=== PATIENT | male | born 1970 | race Caucasian/White ===

== ENCOUNTER 2018-01-29 18:14 | Emergency (ER) | payer OTHER ==
--- NOTE | 2018-01-29 18:20 | EDM.PDOC ---
ED HPI GENERAL MEDICAL PROBLEM - General Chief Complaint: Upper Extremity Injury/Pain Stated Complaint: FALL/PAIN LT PALM/RT ELBOW Time Seen by Provider: 01/29/18 18:19 Source of Information: Reports: Patient History Limitations: Reports: No Limitations - History of Present Illness INITIAL COMMENTS - FREE TEXT/NARRATIVE: HISTORY AND PHYSICAL: History of present illness: Patient is a 47-year-old male who presents to the emergency room today with complaints of right elbow pain and left wrist pain after falling. He states the sole of his shoe got caught on the curb and he fell with outstretched arms. He states that his palmar surface on his left hand and right elbow struck the ground. He denies hitting his head or any loss of consciousness. No previous injury or surgeries to the affected extremities. Review of systems: As per history of present illness and below otherwise all systems reviewed and negative. Past medical history: As per history of present illness and as reviewed below otherwise noncontributory. Surgical history: As per history of present illness and as reviewed below otherwise noncontributory. Social history: No reported history of drug or alcohol abuse. Family history: As per history of present illness and as reviewed below otherwise noncontributory. Physical exam: General: Well-developed and well-nourished 47-year-old male. Alert and oriented. Nontoxic appearing and in no acute distress. HEENT: Atraumatic, normocephalic, pupils equal and reactive bilaterally, negative for conjunctival pallor or scleral icterus, mucous membranes moist, throat clear, neck supple, nontender, trachea midline. No drooling or trismus noted. No meningeal signs Lungs: Clear to auscultation, breath sounds equal bilaterally, chest nontender. Heart: S1S2, regular rate and rhythm without overt murmur Abdomen: Soft, nondistended, nontender. Negative for masses or hepatosplenomegaly. Negative for costovertebral tenderness. Pelvis: Stable nontender. Genitourinary: Deferred. Rectal: Deferred. Skin: Intact, warm, dry. No lesions or rashes noted. Mild soft tissue swelling noted to the right elbow. Extremities: Moves all extremities per self. He does have tenderness to the right elbow with palpation. No forearm or humerus involvement. Strong radial pulses bilaterally. Does have pain with flexion and extension of the right wrist that shoots up his forearm. negative for cords or calf pain. Neurovascular unremarkable. Neuro: Awake, alert, oriented. Cranial nerves II through XII unremarkable. Cerebellum unremarkable. Motor and sensory unremarkable throughout. Exam nonfocal. Notes: We'll x-ray the right elbow and left wrist as the area the only 2 areas of concern in pain during my physical examination. He does have ice applied to the right elbow. He declines anything for pain at this time. X-ray of the left wrist is negative for fracture, subluxation or soft tissue swelling. There is some mild osteoarthritis noted. Give the patient a cockup wrist splint for comfort. Diagnostics: X-ray right elbow, left wrist Therapeutics: Ice, cock-up wrist splint Impression: Nondisplaced radial neck fracture Left hand pain Plan: 1. You have a nondisplaced radial neck fracture. These keep the splint and sling on for comfort, and until you have been reevaluated by orthopedics. 2. Tramadol has been prescribed for you for your to severe pain. You may take one tab every 4-6 hours as needed. This medication may cause drowsiness so do not take while driving or needing to be functioning outside of the house. He may take Tylenol as needed for breakthrough pain or daytime use. 3. Rest, ice, elevate the extremity throughout the day. 4. Follow-up with the orthopedic provider within the next week. Return to the ED as needed and as discussed. Definitive disposition and diagnosis as appropriate pending reevaluation and review of above. Onset: Today Location: Reports: Upper Extremity, Left, Upper Extremity, Right Left Wrist Pain Score (Numeric/FACES): 7 Right Elbow Pain Score (Numeric/FACES): 7 - Related Data Allergies Allergy/AdvReac Type Severity Reaction Status Date / Time NSAIDS (Non-Steroidal Allergy Swollen Verified 01/29/18 18:25 Anti-Inflamma Tongue Home Meds: Home Meds . [No Known Home Meds] 01/29/18 [History] Review of Systems - Review of Systems Review Of Systems: ROS reveals no pertinent complaints other than HPI. ED EXAM, GENERAL - Physical Exam Exam: See Below (See dictation) Course - Vital Signs Last Recorded V/S: Last Vital Signs Temp 98.5 F 01/29/18 18:22 Pulse 76 01/29/18 18:22 Resp 16 01/29/18 18:22 BP 177/112 H 01/29/18 18:22 Pulse Ox 99 01/29/18 18:22 - Orders/Labs/Meds Orders: Active Orders 24 hr Category Date Time Status Elbow 2V Rt [CR] Stat Exams 01/29/18 18:25 Ordered Wrist 2V Lt [CR] Stat Exams 01/29/18 18:25 Taken Departure - Departure Time of Disposition: 19:06 Disposition: Home, Self-Care 01 Clinical Impression: Left hand pain Fracture of radius Qualifiers: Encounter type: initial encounter Radius location: neck Fracture type: closed Fracture alignment: nondisplaced Laterality: right Qualified Code(s): S52.134A - Nondisplaced fracture of neck of right radius, initial encounter for closed fracture - Discharge Information Instructions: Radial Head Fracture, [id number] Referrals: PCP,None [Primary Care Provider] - Forms: ED Department Discharge Additional Instructions: The following information is given to patients seen in the emergency department who are being discharged to home. This information is to outline your options for follow-up care. We provide all patients seen in our emergency department with a follow-up referral. The need for follow-up, as well as the timing and circumstances, are variable depending upon the specifics of your emergency department visit. If you don't have a primary care physician on staff, we will provide you with a referral. We always advise you to contact your personal physician following an emergency department visit to inform them of the circumstance of the visit and for follow-up with them and/or the need for any referrals to a consulting specialist. The emergency department will also refer you to a specialist when appropriate. This referral assures that you have the opportunity for follow-up care with a specialist. All of these measure are taken in an effort to provide you with optimal care, which includes your follow-up. Under all circumstances we always encourage you to contact your private physician who remains a resource for coordinating your care. When calling for follow-up care, please make the office aware that this follow-up is from your recent emergency room visit. If for any reason you are refused follow-up, please contact the [facility] Emergency Department at and asked to speak to the emergency department charge nurse. [facility] [address] [place], [place] [id number] [facility] - [facility] Professional [facility] [address] [place] [address], [address] [place] [address] 1. You have a nondisplaced radial neck fracture. These keep the splint and sling on for comfort, and until you have been reevaluated by orthopedics. 2. Tramadol has been prescribed for you for your to severe pain. You may take one tab every 4-6 hours as needed. This medication may cause drowsiness so do not take while driving or needing to be functioning outside of the house. He may take Tylenol as needed for breakthrough pain or daytime use. 3. Rest, ice, elevate the extremity throughout the day. 4. Follow-up with the orthopedic provider within the next week. Return to the ED as needed and as discussed. - My Orders Last 24 Hours: My Active Orders 01/29/18 18:25 Elbow 2V Rt [CR] Stat Wrist 2V Lt [CR] Stat - Assessment/Plan Last 24 Hours: My Active Orders 01/29/18 18:25 Elbow 2V Rt [CR] Stat Wrist 2V Lt [CR] Stat
--- NOTE | 2018-01-30 09:36 | CR ---
EXAM DATE: 01/29/18 PATIENT'S AGE: 47 Patient: MICHEAL DELUCA Facility: [place], [place] Site . Site : 1970 Study: XRay Extremity Left [id number]/[id number] 6:45:42 PM Ordering Physician: Doctor Jean Final Report: INDICATION: Left wrist injury. TECHNIQUE: AP and lateral views of the left wrist. COMPARISON: None. FINDINGS: No obvious soft tissue swelling, fracture or subluxation. Mild radiocarpal joint osteoarthritis. CONCLUSION: 1. Negative for acute traumatic abnormality. 2. Mild radiocarpal joint osteoarthritis. Dictated by Arslan Kyle MD @ Jan 29 2018 6:51PM (Electronic Signature) Report Signed by Proxy. OWEN
--- NOTE | 2018-01-30 09:37 | CR ---
EXAM DATE: 01/29/18 PATIENT'S AGE: 47 Patient: MICHEAL DELUCA Facility: [place], [place] Site . Site : 1970 Study: XRay Extremity Right [id number]/[id number] 6:46:09 PM Ordering Physician: Doctor Jean Final Report: INDICATION: Right elbow injury. TECHNIQUE: Two views of the right elbow. COMPARISON: None. FINDINGS: Abnormal fat pads. Acute nondisplaced radial head/neck fracture. Otherwise unremarkable. IMPRESSION: Acute nondisplaced radial head/neck fracture and hemarthrosis. Dictated by Arslan Kyle MD @ Jan 29 2018 6:51PM (Electronic Signature) Report Signed by Proxy. OWEN
== END 2018-01-29 19:25 | disposition home or self-care (01) ==
LOC: MW.ED 18:14
DX: S52.134A Nondisplaced fracture of neck of right radius, initial encounter for closed fracture (principal); Z88.8 Allergy status to other drugs, medicaments and biological substances; W01.0XXA Fall on same level from slipping, tripping and stumbling without subsequent striking against object, initial encounter
CPT/HCPCS: 73070-26-RT; 73070-RT; 73100-26-LT; 73100-LT; 99283

== ENCOUNTER 2022-01-15 17:00 | Emergency (ER) | payer OTHER, BC ==
[2022-01-15] MEDS ORDERED: Cyclobenzaprine 10 MG Tab PO ONE (17:11)
[2022-01-15] MEDS ORDERED: Acetaminophen/oxyCODONE 325-5 MG Tab PO ONE (17:12)
== END 2022-01-15 18:07 | disposition home or self-care (01) ==
LOC: MW.ED 17:00
DX: S89.92XA Unspecified injury of left lower leg, initial encounter (principal); I10 Essential (primary) hypertension; Z88.8 Allergy status to other drugs, medicaments and biological substances; Z79.899 Other long term (current) drug therapy; W11.XXXA Fall on and from ladder, initial encounter
CPT/HCPCS: 73562; 99283; A9270

== ENCOUNTER 2024-01-17 07:58 | Day surgery (SDC) | payer BC ==
[2024-01-17] MEDS: Lactated Ringers 1,000 ML IV SCH (08:28)
[2024-01-17] MEDS ORDERED: Propofol 200 MG/20 ML SDV ONE ×3 (09:15→09:46)
[2024-01-17] MEDS ORDERED: Lidocaine 2% 5 ML SDV ONE (09:15)
[2024-01-17] MEDS ORDERED: Lactated Ringers 1,000 ML IV SCH (10:15)
== END 2024-01-17 11:10 | disposition home or self-care (01) ==
LOC: MW.SDS 07:58
PROVIDERS: ATTEND Surgery
DX: K29.50 Unspecified chronic gastritis without bleeding (principal); D12.2 Benign neoplasm of ascending colon; K57.30 Diverticulosis of large intestine without perforation or abscess without bleeding; E11.9 Type 2 diabetes mellitus without complications; E78.5 Hyperlipidemia, unspecified; I10 Essential (primary) hypertension; E03.9 Hypothyroidism, unspecified; M10.9 Gout, unspecified; E66.9 Obesity, unspecified; G47.30 Sleep apnea, unspecified; K44.9 Diaphragmatic hernia without obstruction or gangrene; K21.9 Gastro-esophageal reflux disease without esophagitis; Z79.899 Other long term (current) drug therapy; Z88.6 Allergy status to analgesic agent
CPT/HCPCS: 43239; 45380; J2704; J7120; 00731; J3490